=== PATIENT | female | born 1960 | race Caucasian/White ===

== ENCOUNTER 2023-09-16 07:04 | Day surgery (SDC) | payer BC ==
[~2023-09-16] VITALS: Ht 149.9 cm; Wt 71.7 kg
[2023-09-16 07:25] VITALS: BP 115/72; PULSE 81; RESP 18; TEMP 98.5; O2SAT 96
[2023-09-16] MEDS ORDERED: LEVO88TA2 PO (07:37)
[2023-09-16] MEDS ORDERED: AMLO5TAB PO (07:37)
[2023-09-16] MEDS ORDERED: BUPR300T53 PO (07:37)
[2023-09-16] MEDS ORDERED: PANT-47 PO (07:37)
[2023-09-16] MEDS ORDERED: CHOL20004 PO (07:37)
[2023-09-16] MEDS ORDERED: LACT1CAP65 PO (07:37)
[2023-09-16] MEDS ORDERED: ESCI20TA PO (07:37)
[2023-09-16] MEDS ORDERED: albumin 25% 100mL bottle x 1 IV PRN (08:00)
[2023-09-16] MEDS ORDERED: LORA-269 PO (08:13)
[2023-09-16 09:00] VITALS: BP 118/70; PULSE 80; RESP 16; O2SAT 94
[2023-09-16 09:15] VITALS: BP 116/56; PULSE 65; RESP 14; O2SAT 94
[2023-09-16 09:30] VITALS: BP 104/58; PULSE 65; RESP 16; O2SAT 96
[2023-09-16 09:45] VITALS: BP 103/67; PULSE 63; RESP 14; O2SAT 94
[2023-09-16 10:00] VITALS: BP 115/68; PULSE 67; RESP 16; O2SAT 94
== END 2023-09-16 10:10 | disposition home or self-care (01) ==
LOC: SSTAY O 07:04
PROVIDERS: ATTEND Radiology Diagnostic Radiology
DX: J90 Pleural effusion, not elsewhere classified (principal); F32.A Depression, unspecified; E03.9 Hypothyroidism, unspecified; I10 Essential (primary) hypertension; Z88.5 Allergy status to narcotic agent; Z79.899 Other long term (current) drug therapy
CPT/HCPCS: 32555; 87070; C1729

== ENCOUNTER 2023-10-07 06:42 | Day surgery (SDC) | payer MEDICARE, BC ==
[2023-10-07] VITALS (7 sets, daily range): BP systolic 117–144; BP diastolic 75–87; PULSE 69–80; RESP 16–18; TEMP 98; O2SAT 93–96
[~2023-10-07 06:42] MED LIST: AMLO5TAB PO; BUPR300T53 PO; CHOL20004 PO; ESCI20TA PO; LACT1CAP65 PO; LEVO88TA2 PO; LORA-269 PO; PANT-47 PO
[2023-10-07] MEDS ORDERED: albumin 25% 100mL bottle x 1 IV PRN (07:20)
[2023-10-07] MEDS ORDERED: [UNRECOGNIZED DRUG - OTHER] PO (07:45)
[2023-10-07] MEDS ORDERED: BENZ-111 PO (07:45)
[2023-10-07] MEDS ORDERED: LEVO100T9 PO (07:45)
== END 2023-10-07 09:10 | disposition home or self-care (01) ==
LOC: SSTAY O 06:42
PROVIDERS: ATTEND Radiology Diagnostic Radiology
DX: J90 Pleural effusion, not elsewhere classified (principal); F32.A Depression, unspecified; E03.9 Hypothyroidism, unspecified; I10 Essential (primary) hypertension; C78.00 Secondary malignant neoplasm of unspecified lung; Z88.5 Allergy status to narcotic agent; Z79.899 Other long term (current) drug therapy; Z98.890 Other specified postprocedural states
CPT/HCPCS: 32555; C1729

== ENCOUNTER 2023-10-17 06:28 | Day surgery (SDC) | payer MEDICARE, BC ==
[~2023-10-17] VITALS: Ht 149.9 cm; Wt 71.4 kg
[~2023-10-17 06:28] MED LIST changes: +BENZ-111 PO; -LACT1CAP65 PO; +LEVO100T9 PO; -LEVO88TA2 PO; +[UNRECOGNIZED DRUG - OTHER] PO
[2023-10-17] MEDS ORDERED: GUAI120L55 PO (06:44)
[2023-10-17 06:46] VITALS: BP 137/81; PULSE 79; RESP 12; TEMP 97.4; O2SAT 91
[2023-10-17 09:05] VITALS: BP 124/80; PULSE 80; RESP 12; O2SAT 92
[2023-10-17 09:12] VITALS: BP_SYST 123; BP_SYST 131; BP_DIAS 68; BP_DIAS 71; PULSE 74; PULSE 89; RESP 12; O2SAT 91; O2SAT 96
[2023-10-17 09:25] VITALS: BP 123/71; PULSE 74; RESP 12; O2SAT 96
[2023-10-17 09:40] VITALS: BP 119/74; PULSE 72; RESP 12; O2SAT 96
[2023-10-17 09:55] VITALS: BP 125/80; PULSE 80; RESP 12; O2SAT 96
== END 2023-10-17 10:00 | disposition home or self-care (01) ==
LOC: SSTAY O 06:28
PROVIDERS: ATTEND Radiology Diagnostic Radiology
DX: C34.90 Malignant neoplasm of unspecified part of unspecified bronchus or lung (principal); J91.0 Malignant pleural effusion; F32.A Depression, unspecified; E03.9 Hypothyroidism, unspecified; I10 Essential (primary) hypertension; Z88.5 Allergy status to narcotic agent; Z79.899 Other long term (current) drug therapy
CPT/HCPCS: 32555; C1729; A4615

== ENCOUNTER 2023-10-24 06:27 | Day surgery (SDC) | payer MEDICARE, BC ==
[2023-10-24] VITALS (8 sets, daily range): BP systolic 103–128; BP diastolic 68–82; PULSE 76–83; RESP 16–22; TEMP 97.7; O2SAT 90–94
[~2023-10-24] VITALS: Ht 149.9 cm; Wt 69.0 kg
[~2023-10-24 06:27] MED LIST changes: +GUAI120L55 PO
== END 2023-10-24 09:15 | disposition home or self-care (01) ==
LOC: SSTAY O 06:27
PROVIDERS: ATTEND Radiology Vascular & Interventional Radiology
DX: J90 Pleural effusion, not elsewhere classified (principal); F32.A Depression, unspecified; E03.9 Hypothyroidism, unspecified; I10 Essential (primary) hypertension; C78.00 Secondary malignant neoplasm of unspecified lung; Z98.890 Other specified postprocedural states; Z79.899 Other long term (current) drug therapy
CPT/HCPCS: 32555; C1729; A4615

== ENCOUNTER 2023-10-30 08:28 | Day surgery (SDC) | payer MEDICARE, BC ==
[~2023-10-30] VITALS: Ht 149.9 cm; Wt 68.2 kg
[2023-10-30] VITALS (9 sets, daily range): BP systolic 94–136; BP diastolic 54–77; PULSE 15–94; RESP 17–20; TEMP 98.3; O2SAT 92–98
[2023-10-30] MEDS ORDERED: ONDA-104 PO (08:43)
[2023-10-30] MEDS ORDERED: SENN-263 PO (08:43)
[2023-10-30] MEDS ORDERED: TRAM50TA2 (08:43)
== END 2023-10-30 10:15 | disposition home or self-care (01) ==
LOC: SSTAY O 08:28
PROVIDERS: ATTEND Radiology Vascular & Interventional Radiology
DX: J90 Pleural effusion, not elsewhere classified (principal); C78.00 Secondary malignant neoplasm of unspecified lung; F32.A Depression, unspecified; E03.9 Hypothyroidism, unspecified; I10 Essential (primary) hypertension; Z98.890 Other specified postprocedural states; Z79.899 Other long term (current) drug therapy
CPT/HCPCS: 32555; C1729

== ENCOUNTER 2023-11-06 06:06 | Day surgery (SDC) | payer MEDICARE, BC ==
[~2023-11-06] VITALS: Ht 149.9 cm; Wt 67.4 kg
[~2023-11-06 06:06] MED LIST changes: +ONDA-104 PO; +SENN-263 PO; +TRAM50TA2
[2023-11-06 06:39] VITALS: BP 126/67; PULSE 100; RESP 20; TEMP 98.7; O2SAT 96
[2023-11-06 08:05] VITALS: BP 118/67; PULSE 90; RESP 14; O2SAT 94
[2023-11-06 08:20] VITALS: BP 108/53; PULSE 91; RESP 16; O2SAT 96
[2023-11-06 08:35] VITALS: BP 104/57; PULSE 86; RESP 16; O2SAT 97
[2023-11-06 08:50] VITALS: BP 115/65; PULSE 83; RESP 16; O2SAT 97
[2023-11-06 09:10] VITALS: BP 114/60; PULSE 85; RESP 16; O2SAT 99
== END 2023-11-06 09:10 | disposition home or self-care (01) ==
LOC: SSTAY O 06:06
PROVIDERS: ATTEND Radiology Vascular & Interventional Radiology
DX: J90 Pleural effusion, not elsewhere classified (principal); F32.A Depression, unspecified; E03.9 Hypothyroidism, unspecified; I10 Essential (primary) hypertension; C78.00 Secondary malignant neoplasm of unspecified lung; Z98.890 Other specified postprocedural states; Z79.899 Other long term (current) drug therapy; Z88.5 Allergy status to narcotic agent
CPT/HCPCS: 32555; C1729

== ENCOUNTER 2023-11-13 08:00 | Day surgery (SDC) | payer MEDICARE, BC ==
[2023-11-13] VITALS (9 sets, daily range): BP systolic 108–146; BP diastolic 68–89; PULSE 89–104; RESP 15–18; TEMP 98.1; O2SAT 87–94
[~2023-11-13] VITALS: Ht 152.4 cm; Wt 67.9 kg
[2023-11-13] MEDS ORDERED: albumin 25% 100mL bottle x 1 IV PRN (08:30)
[2023-11-13] MEDS ORDERED: acetaminophen 325mg tablet PO STA (10:30)
== END 2023-11-13 11:05 | disposition home or self-care (01) ==
LOC: SSTAY O 08:00
PROVIDERS: ATTEND Radiology Vascular & Interventional Radiology
DX: J90 Pleural effusion, not elsewhere classified (principal); C78.00 Secondary malignant neoplasm of unspecified lung; F32.A Depression, unspecified; E03.9 Hypothyroidism, unspecified; I10 Essential (primary) hypertension; Z79.899 Other long term (current) drug therapy; Z98.890 Other specified postprocedural states; Z88.5 Allergy status to narcotic agent
CPT/HCPCS: 32555; A4615; C1729

== ENCOUNTER 2023-11-20 08:03 | Day surgery (SDC) | payer MEDICARE, BC ==
[~2023-11-20] VITALS: Ht 149.9 cm; Wt 65.8 kg
[~2023-11-20 08:03] MED LIST changes: -BENZ-111 PO; -GUAI120L55 PO
[2023-11-20 08:25] VITALS: BP 115/71; PULSE 101; RESP 18; TEMP 97.8; O2SAT 93
[2023-11-20] MEDS ORDERED: albumin 25% 100mL bottle x 1 IV PRN (08:30)
[2023-11-20] MEDS ORDERED: GUAI-652 PO (08:32)
[2023-11-20] MEDS ORDERED: OSIM80TA PO (08:32)
[2023-11-20 09:10] VITALS: BP 119/72; PULSE 97; RESP 16; O2SAT 94
[2023-11-20 09:15] VITALS: BP 127/79; PULSE 93; RESP 17; O2SAT 93
[2023-11-20] MEDS ORDERED: acetaminophen 325mg tablet PO PRN ×2 (09:20)
[2023-11-20 09:30] VITALS: BP 116/78; PULSE 94; RESP 16; O2SAT 93
[2023-11-20 09:45] VITALS: BP 117/78; PULSE 95; RESP 15; O2SAT 93
[2023-11-20 10:00] VITALS: BP 109/73; PULSE 90; RESP 16; O2SAT 93
== END 2023-11-20 10:06 | disposition home or self-care (01) ==
LOC: SSTAY O 08:03
PROVIDERS: ATTEND Radiology Vascular & Interventional Radiology
DX: J90 Pleural effusion, not elsewhere classified (principal); I10 Essential (primary) hypertension; E03.9 Hypothyroidism, unspecified; F32.A Depression, unspecified; Z79.899 Other long term (current) drug therapy; Z98.890 Other specified postprocedural states
CPT/HCPCS: 32555; C1729; A4615

== ENCOUNTER 2023-11-27 08:08 | Day surgery (SDC) | payer MEDICARE, BC ==
[~2023-11-27] VITALS: Ht 149.9 cm; Wt 65.9 kg
[~2023-11-27 08:08] MED LIST changes: +GUAI-652 PO; +OSIM80TA PO
[2023-11-27 08:30] VITALS: RESP 18; O2SAT 100
[2023-11-27] MEDS ORDERED: albumin 25% 100mL bottle x 1 IV PRN (08:35)
[2023-11-27 09:19] VITALS: BP 115/68; PULSE 98; RESP 16; TEMP 97.4; O2SAT 96
[2023-11-27 09:38] VITALS: BP 135/75; PULSE 93; RESP 18; O2SAT 98
[2023-11-27 09:47] VITALS: BP 103/67; PULSE 93; RESP 18; O2SAT 98
[2023-11-27] MEDS ORDERED: acetaminophen 325mg tablet PO STA (09:53)
[2023-11-27 10:02] VITALS: BP 117/77; PULSE 93; RESP 16; O2SAT 97
[2023-11-27 10:17] VITALS: BP 127/78; PULSE 96; RESP 16; O2SAT 97
== END 2023-11-27 10:30 | disposition home or self-care (01) ==
LOC: SSTAY O 08:08
PROVIDERS: ATTEND Radiology Diagnostic Radiology
DX: J90 Pleural effusion, not elsewhere classified (principal); F32.A Depression, unspecified; E03.9 Hypothyroidism, unspecified; I10 Essential (primary) hypertension; C78.00 Secondary malignant neoplasm of unspecified lung; Z79.899 Other long term (current) drug therapy; Z98.890 Other specified postprocedural states
CPT/HCPCS: 32555; C1729; A4620

== ENCOUNTER 2023-12-04 08:05 | Day surgery (SDC) | payer MEDICARE, BC ==
[~2023-12-04] VITALS: Ht 152.4 cm; Wt 65.5 kg
[2023-12-04] VITALS (8 sets, daily range): BP systolic 81–128; BP diastolic 47–78; PULSE 60–95; RESP 15–17; TEMP 97.6; O2SAT 95–97
[2023-12-04] MEDS ORDERED: acetaminophen 325mg tablet PO PRN ×2 (10:05)
== END 2023-12-04 10:30 | disposition home or self-care (01) ==
LOC: SSTAY O 08:05
PROVIDERS: ATTEND Radiology Vascular & Interventional Radiology
DX: J90 Pleural effusion, not elsewhere classified (principal); I10 Essential (primary) hypertension; E03.9 Hypothyroidism, unspecified; F32.A Depression, unspecified; Z79.890 Hormone replacement therapy; Z79.899 Other long term (current) drug therapy; Z88.5 Allergy status to narcotic agent
CPT/HCPCS: 32555; C1729; A4615

== ENCOUNTER 2023-12-11 08:12 | Day surgery (SDC) | payer MEDICARE, BC ==
[~2023-12-11] VITALS: Ht 149.9 cm; Wt 64.9 kg
[~2023-12-11 08:12] MED LIST changes: -GUAI-652 PO
[2023-12-11 08:31] VITALS: BP 122/74; PULSE 92; RESP 16; TEMP 98.1; O2SAT 96
[2023-12-11] MEDS ORDERED: albumin 25% 100mL bottle x 1 IV PRN (08:35)
[2023-12-11 09:55] VITALS: BP 117/62; PULSE 90; O2SAT 96
[2023-12-11 10:00] VITALS: BP 114/60; PULSE 86; RESP 16; O2SAT 95
[2023-12-11 10:15] VITALS: BP 137/73; PULSE 91; RESP 14; O2SAT 94
[2023-12-11 10:30] VITALS: BP 113/64; PULSE 81; RESP 16; O2SAT 95
== END 2023-12-11 10:32 | disposition home or self-care (01) ==
LOC: SSTAY O 08:12
PROVIDERS: ATTEND Radiology Vascular & Interventional Radiology
DX: J90 Pleural effusion, not elsewhere classified (principal); R06.02 Shortness of breath; I10 Essential (primary) hypertension; E03.9 Hypothyroidism, unspecified; F32.A Depression, unspecified
CPT/HCPCS: 32555; C1729; A4615

== ENCOUNTER 2023-12-19 08:20 | Day surgery (SDC) | payer MEDICARE, BC ==
[~2023-12-19] VITALS: Ht 149.9 cm; Wt 64.5 kg
[2023-12-19 08:45] VITALS: BP 97/62; PULSE 94; RESP 18; RESP 20; TEMP 97.4; O2SAT 96; O2SAT 98
[2023-12-19] MEDS ORDERED: albumin 25% 100mL bottle x 1 IV PRN (09:00)
[2023-12-19 09:35] VITALS: BP 94/63; PULSE 88; RESP 16; O2SAT 95
[2023-12-19 09:41] VITALS: BP 105/56; PULSE 96; RESP 16; O2SAT 99
[2023-12-19 09:50] VITALS: BP 108/70; PULSE 87; RESP 16; O2SAT 98
[2023-12-19] MEDS: acetaminophen 325mg tablet PO STA (09:59)
[2023-12-19 10:05] VITALS: BP 111/64; PULSE 87; RESP 16; O2SAT 97
== END 2023-12-19 10:15 | disposition home or self-care (01) ==
LOC: SSTAY O 08:20
PROVIDERS: ATTEND Radiology Vascular & Interventional Radiology
DX: J90 Pleural effusion, not elsewhere classified (principal); F32.A Depression, unspecified; E03.9 Hypothyroidism, unspecified; I10 Essential (primary) hypertension; Z98.890 Other specified postprocedural states; Z79.899 Other long term (current) drug therapy
CPT/HCPCS: 32555; C1729; A4615

== ENCOUNTER 2023-12-26 08:29 | Day surgery (SDC) | payer MEDICARE, BC ==
[~2023-12-26] VITALS: Ht 149.9 cm; Wt 64.1 kg
[2023-12-26] MEDS ORDERED: AZIT-164 PO (08:59)
[2023-12-26 09:00] VITALS: BP 118/72; PULSE 98; RESP 16; TEMP 98.6; O2SAT 96
[2023-12-26 09:50] VITALS: BP_SYST 118; BP_SYST 122; BP_DIAS 72; BP_DIAS 77; PULSE 94; PULSE 98; RESP 16; O2SAT 95; O2SAT 96
[2023-12-26 10:05] VITALS: BP 140/54; PULSE 87; RESP 16; O2SAT 96
[2023-12-26 10:21] VITALS: BP 114/64; PULSE 85; RESP 16; O2SAT 97
[2023-12-26] MEDS: acetaminophen 325mg tablet PO ONE (10:29)
[2023-12-26 10:31] VITALS: BP 112/67; PULSE 83; RESP 16; O2SAT 97
== END 2023-12-26 10:52 | disposition home or self-care (01) ==
LOC: SSTAY O 08:29
PROVIDERS: ATTEND Radiology Vascular & Interventional Radiology
DX: J90 Pleural effusion, not elsewhere classified (principal); F32.A Depression, unspecified; E03.9 Hypothyroidism, unspecified; I10 Essential (primary) hypertension; Z79.899 Other long term (current) drug therapy; Z88.5 Allergy status to narcotic agent; Z98.890 Other specified postprocedural states
CPT/HCPCS: 32555; C1729; A4615

== ENCOUNTER 2024-01-01 08:20 | Day surgery (SDC) | payer MEDICARE, BC ==
[~2024-01-01] VITALS: Ht 149.9 cm; Wt 65.4 kg
[~2024-01-01 08:20] MED LIST changes: +AZIT-164 PO
[2024-01-01 08:35] VITALS: BP 125/75; PULSE 92; RESP 16; TEMP 97.6; O2SAT 94
[2024-01-01 08:45] VITALS: BP 108/73; PULSE 83; RESP 16; O2SAT 95
[2024-01-01 08:50] VITALS: BP 111/61; PULSE 77; RESP 15; O2SAT 94
[2024-01-01] MEDS ORDERED: albumin 25% 100mL bottle x 1 IV PRN (08:50)
[2024-01-01 09:05] VITALS: BP 109/71; PULSE 80; RESP 15; O2SAT 96
[2024-01-01] MEDS: acetaminophen 325mg tablet PO STA (09:12)
[2024-01-01 09:20] VITALS: BP 110/72; PULSE 81; RESP 16; O2SAT 96
== END 2024-01-01 09:40 | disposition home or self-care (01) ==
LOC: SSTAY O 08:20
PROVIDERS: ATTEND Radiology Vascular & Interventional Radiology
DX: J90 Pleural effusion, not elsewhere classified (principal); C78.00 Secondary malignant neoplasm of unspecified lung; E03.9 Hypothyroidism, unspecified; I10 Essential (primary) hypertension; F32.A Depression, unspecified; Z88.5 Allergy status to narcotic agent; Z79.899 Other long term (current) drug therapy; Z98.890 Other specified postprocedural states
CPT/HCPCS: 32555; C1729; A4615